=== PATIENT | male | born 1935 | race Caucasian/White ===

== ENCOUNTER 2024-01-25 23:17 | Inpatient (IN) | payer MEDICARE, OTHER ==
[2024-01-26] MEDS ORDERED: Dextrose 50% Abboject 50 ML SYRINGE SLOW IVP PRN (02:18)
[2024-01-26] MEDS ORDERED: Glucagon 1 MG/ML KIT IM PRN (02:18)
[2024-01-26] MEDS ORDERED: Dextrose 5% in Water 1,000 ML IV PRN (02:18)
[2024-01-26] MEDS: traMADol HCl 50 MG TAB PO PRN ×2 (02:59→09:08)
[2024-01-26 03:50] VITALS: BMI 26.7
[2024-01-26] MEDS: Albuterol 2.5 MG (3 mL) NEB NEB SCH (03:58)
[2024-01-26 04:52] LABS: #Basophils 0.03 10x3/uL (0.0-0.2); %Basophils 0.2 % (0.0-1.0); %Eosinophils 0.3 % (0.0-10.0); %Lymphocytes 3.7 % (21.0-51.0); %Monocytes 3.8 % (0.0-10.0); %Neutrophils 91.3 % (42.0-75.0); Hematocrit 39.9 % (42.0-52.0); Hemoglobin 12.9 g/dL (14.0-18.0); Mean Corpuscular HGB CONC 32.3 g/dL (32.0-36.0); Mean Corpuscular Hemoglobin 29.8 pg (27.0-31.0); Mean Corpuscular Volume 92.1 fL (78.0-98.0); Mean Platelet Volume 11.3 fL (7.4-10.4); Platelet Count 219 10x3/uL (130-400); RBC Distribution Width 14.3 % (11.5-14.5); Red Blood Cell (RBC) Count 4.33 mill/uL (4.70-6.10)
[2024-01-26 05:13] LABS: Anion Gap 14 mmol/L (10-20); BUN (Urea Nitrogen) 9 mg/dL (8.4-25.7); Calc. Creatinine Clearance 84 mL/min (70-130); Calcium 8.3 mg/dL (7.8-10.44); Carbon Dioxide 27 mmol/L (23-31); Chloride 105 mmol/L (98-107); Estimated GFR 88; Glucose 115 mg/dL (83-110); Potassium 3.6 mmol/L (3.5-5.1); Sodium 142 mmol/L (136-145)
[2024-01-26] MEDS: Morphine 2 MG/ML VIAL SLOW IVP PRN (06:20)
[2024-01-26] MEDS: Venlafaxine HCl XR 150 MG CAP PO SCH (09:05)
[2024-01-26] MEDS: Pantoprazole DR 40 MG TAB PO SCH (09:05)
[2024-01-26] MEDS: Docusate 100 MG CAP PO SCH (09:05)
[2024-01-26] MEDS: Metoprolol Tartrate 25 MG TAB PO SCH (09:05)
[2024-01-26] MEDS ORDERED: Iopamidol-370 76% 500 ML MDV (1 ML CHARGE) ONE (11:30)
[2024-01-26] MEDS: traMADol HCl 50 MG TAB PO SCH (12:46)
[2024-01-26] MEDS: Acetaminophen 325 MG TAB PO PRN (20:24)
[2024-01-26] MEDS: hydrALAZINE 20 MG/ML VIAL SLOW IVP SCH (23:02)
[2024-01-27] MEDS: hydrALAZINE 20 MG/ML VIAL SLOW IVP SCH (00:29)
[2024-01-27 01:48] LABS: Bacteria/HPF None Seen HPF (None Seen); Bilirubin Negative (Negative); Blood, Urine Negative (Negative); Clarity Clear (Clear); Glucose, Urine (Dipstick) Normal (Negative); Ketone, Urine Negative (Negative); Leukocyte Negative Leu/uL (Negative); Nitrite Negative (Negative); Protein, Urine (Dipstick) 30 mg/dL (Neg-Trace); RBC/HPF None Seen HPF (0-3); Specific Gravity, Urine 1.014 (1.002-1.036); Squamous Epithelial None Seen HPF (0-3); Urobilinogen Normal mg/dL (Less than 2); WBC/HPF 0-3 HPF (0-3)
[2024-01-27 04:26] LABS: #Basophils 0.05 10x3/uL (0.0-0.2); %Basophils 0.3 % (0.0-1.0); %Eosinophils 1.1 % (0.0-10.0); %Lymphocytes 3.3 % (21.0-51.0); %Monocytes 3.8 % (0.0-10.0); %Neutrophils 90.8 % (42.0-75.0); Hematocrit 42.7 % (42.0-52.0); Hemoglobin 13.8 g/dL (14.0-18.0); Mean Corpuscular HGB CONC 32.3 g/dL (32.0-36.0); Mean Corpuscular Hemoglobin 29.5 pg (27.0-31.0); Mean Corpuscular Volume 91.2 fL (78.0-98.0); Platelet Count 213 10x3/uL (130-400); RBC Distribution Width 14.5 % (11.5-14.5); Red Blood Cell (RBC) Count 4.68 mill/uL (4.70-6.10)
[2024-01-27 04:46] LABS: Anion Gap 13 mmol/L (10-20); BUN (Urea Nitrogen) 11 mg/dL (8.4-25.7); Calc. Creatinine Clearance 82 mL/min (70-130); Calcium 8.6 mg/dL (7.8-10.44); Carbon Dioxide 25 mmol/L (23-31); Chloride 102 mmol/L (98-107); Estimated GFR 88; Glucose 124 mg/dL (83-110); Potassium 3.9 mmol/L (3.5-5.1); Sodium 136 mmol/L (136-145)
[2024-01-27] MEDS: Ondansetron PF 4 MG/2 ML Vial IVP PRN (06:07)
[2024-01-27] MEDS ORDERED: Sodium Chloride 0.9% 1,000 ML IV SCH (10:15)
[2024-01-27] MEDS ORDERED: Ondansetron PF 4 MG/2 ML Vial ONE (11:28)
[2024-01-27] MEDS ORDERED: SUCCINYLCHOLINE/SOD CL,ISO/PF 200 MG/10 ML SYRINGE FS ONE (11:28)
[2024-01-27] MEDS ORDERED: Lidocaine 2% PF 5 ML VIAL ONE (11:28)
[2024-01-27] MEDS ORDERED: Rocuronium Bromide 10 MG/ML (10ML VIAL) ONE (11:28)
[2024-01-27] MEDS ORDERED: SUGAMMADEX SODIUM 200 MG/2 ML VIAL ONE (11:28)
[2024-01-27] MEDS ORDERED: PROPOFOL 20 ML ONE (11:28)
[2024-01-27] MEDS ORDERED: fentaNYL PF 100 MCG/2 ML SYRINGE ONE (11:28)
[2024-01-27] MEDS ORDERED: Albuterol HFA (OR) 200 PUFF INH ONE (11:28)
[2024-01-27] MEDS ORDERED: Dexmedetomidine 200 MCG/2 ML VIAL ONE (11:33)
[2024-01-27] MEDS ORDERED: Iopamidol-370 76% 500 ML MDV (1 ML CHARGE) ONE (12:19)
[2024-01-27] MEDS ORDERED: Promethazine HCl 25 MG/ML VIAL IM PRN (13:06)
[2024-01-27] MEDS ORDERED: Ondansetron HCl/PF 4 MG/2 ML Vial IVP PRN (13:06)
[2024-01-27] MEDS ORDERED: Ipratropium/Albuterol 3 ML NEB ONE (13:10)
[2024-01-27] MEDS: Sodium Chloride 0.9% 1,000 ML IV SCH (16:44)
[2024-01-27] MEDS ORDERED: Non-Formulary Item 1 EACH (Hydralazine Hcl [Hydralazine Hcl] 50 MG Tablet) PO SCH (21:00)
[2024-01-27] MEDS ORDERED: fentaNYL 50 mcg/mL 1 mL Vial SLOW IVP PRN (21:08)
[2024-01-27] MEDS: NOREPINEPHRINE 8 MG/250 ML-D5W 250 ML IVPB SCH (21:28)
[2024-01-27] MEDS ORDERED: Sodium Bicarb 50 MEQ/50 ML Abboject 8.4% SYRINGE ONE (21:29)
[2024-01-27] MEDS ORDERED: EPINEPHrine 1 MG/10 ML Abboject SYRINGE ONE (21:29)
[2024-01-27 21:57] LABS: Actual Bicarbonate (HCO3a) 19.5 mEq/L (22-28); Base Excess (BEa) -8.3 mEq/L (-2.0 to +3.0); CO2 Tension 51.6 mmHg (35.0-45.0); Calcium, Ionized (arterial) 0.99 mmol/L (1.12-1.30); Carboxyhemoglobin (COHb) 1.6 gm% (0.0-3.0); Hematocrit-ABG 26 % (42.0-52.0); Hemoglobin (Hb) 8.9 g/dL (14.0-18.0); O2 Tension (PaO2), arterial 275.4 mmHg (> 60.0); Potassium - ABG Lab 3.48 mmol/L (3.70-5.30)
[2024-01-27 21:58] LABS: Puncture Site Right Radial artery; pH, Arterial 7.196 (7.35-7.45)
[2024-01-27] MEDS: hydrALAZINE 25 MG TAB PO SCH (22:09)
[2024-01-27] MEDS: Lisinopril 20 MG TAB PO SCH (22:09)
[2024-01-27 22:24] LABS: Band 12 % (5-11); Burr Cells SLIGHT = 2-5 cells HPF (0-1); Elliptocytes SLIGHT = 2-5 cells HPF (0-1); Large Platelets 8.7 % (0-5); Lymphocytes 5 % (21-51); Macrocytosis SLIGHT = 6-15 cells HPF (0-5); Monocytes 3 % (0-10); Neutrophil 80 % (42-75); Platelet Adequacy Comment Platelets Normal; Poikilocytosis SLIGHT = 6-15 cells HPF (0-5); Polychromasia SLIGHT = 2-3 cells HPF (0-2); Schistocytes SLIGHT = 2-5 cells HPF (0-1)
[2024-01-27 22:25] LABS: ALT (SGPT) 35 U/L (8-55); AST (SGOT) 45 U/L (5-34); Albumin 2.2 g/dL (3.4-4.8); Alkaline Phosphatase 70 U/L (40-110); Anion Gap 28 mmol/L (10-20); BUN (Urea Nitrogen) 22 mg/dL (8.4-25.7); Bilirubin, Total 1.9 mg/dL (0.2-1.2); Calc. Creatinine Clearance 40 mL/min (70-130); Calcium 7.8 mg/dL (7.8-10.44); Carbon Dioxide 14 mmol/L (23-31); Chloride 105 mmol/L (98-107); Estimated GFR 45; Glucose 149 mg/dL (83-110); Hematocrit 30.9 % (42.0-52.0); Hemoglobin 9.2 g/dL (14.0-18.0); Magnesium 2.6 mg/dL (1.6-2.6); Mean Corpuscular HGB CONC 29.8 g/dL (32.0-36.0); Mean Corpuscular Hemoglobin 30.3 pg (27.0-31.0); Mean Corpuscular Volume 101.6 fL (78.0-98.0); Mean Platelet Volume 12.1 fL (7.4-10.4); Platelet Count 296 10x3/uL (130-400); Potassium 4.7 mmol/L (3.5-5.1); Protein, Total 4.2 g/dL (5.8-8.1); RBC Distribution Width 14.4 % (11.5-14.5); Red Blood Cell (RBC) Count 3.04 mill/uL (4.70-6.10); Sodium 142 mmol/L (136-145)
[2024-01-27 22:27] LABS: Troponin I 0.093 ng/mL (< 0.028)
[2024-01-27 22:29] LABS: Lactic Acid 15.51 mmol/L (0.5-2.2)
[2024-01-27] MEDS ORDERED: Ventilator Sedation Protocol 1 EACH FS SCH (22:44)
[2024-01-27] MEDS ORDERED: Electrolyte Replacement Protocol 1 EACH FS SCH (22:49)
[2024-01-27] MEDS ORDERED: Ipratropium/Albuterol 3 ML NEB NEB PRN (22:51)
[2024-01-27] MEDS: Vasopressin In 0.9 % NaCl 40 UNIT in Premix 1 BAG IV SCH (23:00)
[2024-01-27] MEDS ORDERED: Propofol BOLUS 1,000 MG/100 ML VIAL IV PRN (23:00)
[2024-01-27] MEDS ORDERED: DISCONTINUE PREVIOUS NARCOTIC PAIN MEDICATIONS AND BENZODIAZEPINES FS SCH (23:00)
[2024-01-27] MEDS ORDERED: Fentanyl BOLUS 250 ML IVPB PRN (23:00)
[2024-01-28 00:43] LABS: Lactic Acid 12.43 mmol/L (0.5-2.2)
[2024-01-28 00:53] LABS: Actual Bicarbonate (HCO3a) 17.8 mEq/L (22-28); Base Excess (BEa) -8.7 mEq/L (-2.0 to +3.0); CO2 Tension 40.5 mmHg (35.0-45.0); Carboxyhemoglobin (COHb) 0.9 gm% (0.0-3.0); Hematocrit-ABG 29 % (42.0-52.0); Hemoglobin (Hb) 9.7 g/dL (14.0-18.0); O2 Tension (PaO2), arterial 70.6 mmHg (> 60.0); Potassium - ABG Lab 3.85 mmol/L (3.70-5.30)
[2024-01-28 00:54] LABS: ALV-art Gradient 591.775 mmHg (0-20); Puncture Site Right Radial artery
[2024-01-28] MEDS: Propofol 1,000 MG/100 ML VIAL IV PRN (00:57)
[2024-01-28] MEDS: Sodium Bicarbonate 150 MEQ in Sterile Water 1,000 ML IVP SCH (00:57)
[2024-01-28] MEDS: Propofol 1,000 MG/100 ML VIAL IV ONE (01:02)
[2024-01-28] MEDS: NOREPINEPHRINE 8 MG/250 ML-D5W 250 ML ONE ×2 (01:02)
[2024-01-28] MEDS: Morphine 2 MG/ML VIAL SLOW IVP PRN (01:13)
[2024-01-28 01:44] VITALS: BP 143/72
[2024-01-28 04:27] LABS: Hematocrit 26.5 % (42.0-52.0); Hemoglobin 8.3 g/dL (14.0-18.0); Mean Corpuscular HGB CONC 31.3 g/dL (32.0-36.0); Mean Corpuscular Hemoglobin 30.2 pg (27.0-31.0); Mean Corpuscular Volume 96.4 fL (78.0-98.0); Mean Platelet Volume 12.4 fL (7.4-10.4); Platelet Count 255 10x3/uL (130-400); RBC Distribution Width 14.5 % (11.5-14.5); Red Blood Cell (RBC) Count 2.75 mill/uL (4.70-6.10)
[2024-01-28 04:35] LABS: Phosphorus 3.5 mg/dL (2.3-4.7)
[2024-01-28 04:40] LABS: ALT (SGPT) 404 U/L (8-55); AST (SGOT) 451 U/L (5-34); Albumin 2.1 g/dL (3.4-4.8); Alkaline Phosphatase 71 U/L (40-110); Anion Gap 20 mmol/L (10-20); BUN (Urea Nitrogen) 32 mg/dL (8.4-25.7); Bilirubin, Total 1.4 mg/dL (0.2-1.2); Calc. Creatinine Clearance 39 mL/min (70-130); Carbon Dioxide 21 mmol/L (23-31); Chloride 102 mmol/L (98-107); Estimated GFR 40; Globulin 1.9 g/dL (2.4-3.5); Glucose 179 mg/dL (83-110); Potassium 3.8 mmol/L (3.5-5.1); Sodium 139 mmol/L (136-145)
[2024-01-28 04:51] LABS: Lactic Acid 10.72 mmol/L (0.5-2.2)
[2024-01-28 05:15] LABS: Anisocytosis SLIGHT = 6-15 cells HPF (0-5); Band 23 % (5-11); Dohle Bodies SLIGHT; Metamyelocyte 1 % (0-0); Monocytes 4 % (0-10); Neutrophil 72 % (42-75); Platelet Adequacy Comment Platelets Normal; Polychromasia SLIGHT = 2-3 cells HPF (0-2); Schistocytes SLIGHT = 2-5 cells HPF (0-1); Toxic Granulation MODERATE
[2024-01-28] MEDS: Enoxaparin 40 MG (0.4 mL) SYRINGE SC SCH (09:17)
[2024-01-28] MEDS: Pantoprazole 40 MG VIAL IVP SCH (09:18)
[2024-01-28] MEDS ORDERED: Acetaminophen 650 MG/20.3 ML UDCUP PO PRN (11:13)
[2024-01-28] MEDS: Sodium Chloride 0.9% 1,000 ML IV SCH ×2 (11:30→18:57)
[2024-01-28] MEDS: traMADol HCl 50 MG TAB PO PRN (12:17)
[2024-01-28] MEDS: Fentanyl CADD 100 ML IV SCH (13:21)
[2024-01-28] MEDS: Lorazepam 2 MG/ML VIAL SLOW IVP PRN (14:19)
[2024-01-28] MEDS: Sodium Chloride 0.9% 500 ML IV SCH (14:40)
[2024-01-28] MEDS: Albumin 25% 25 GM (100 mL) BOT IVPB SCH (14:40)
[2024-01-28 15:35] VITALS: BMI 28.3
[2024-01-28] MEDS: Dexmedetomidine In 0.9 % NaCl 100 ML IVPB SCH (19:31)
[2024-01-28 20:27] VITALS: TEMP 96.7
== END 2024-01-28 22:47 | disposition expired | DRG 521 ==
LOC: SURG A 01-26 01:54 → CCU 01-27 21:38
PROVIDERS: ADMIT Surgery; ATTEND Surgery
PROC: 4A133R1 Monitoring of Arterial Saturation, Peripheral, Percutaneous Approach (ICD-10-PCS; 2024-01-27)
PROC: 3E043XZ Introduction of Vasopressor into Central Vein, Percutaneous Approach (ICD-10-PCS; 2024-01-27)
PROC: 5A1935Z Respiratory Ventilation, Less than 24 Consecutive Hours (ICD-10-PCS; 2024-01-27)
PROC: 0SRR01A Replacement of Right Hip Joint, Femoral Surface with Metal Synthetic Substitute, Uncemented, Open Approach (ICD-10-PCS; principal; 2024-01-28)
PROC: 06HY33Z Insertion of Infusion Device into Lower Vein, Percutaneous Approach (ICD-10-PCS; 2024-01-28)
PROC: 0BH17EZ Insertion of Endotracheal Airway into Trachea, Via Natural or Artificial Opening (ICD-10-PCS; 2024-01-28)
PROC: 3E033XZ Introduction of Vasopressor into Peripheral Vein, Percutaneous Approach (ICD-10-PCS; 2024-01-28)
PROC: 30233J1 Transfusion of Nonautologous Serum Albumin into Peripheral Vein, Percutaneous Approach (ICD-10-PCS; 2024-01-28)
PROC: 0T9B70Z Drainage of Bladder with Drainage Device, Via Natural or Artificial Opening (ICD-10-PCS; 2024-01-28)
DX: S72.001A Fracture of unspecified part of neck of right femur, initial encounter for closed fracture (principal); G93.41 Metabolic encephalopathy; J96.01 Acute respiratory failure with hypoxia; J96.02 Acute respiratory failure with hypercapnia; N17.9 Acute kidney failure, unspecified; E87.4 Mixed disorder of acid-base balance; M62.82 Rhabdomyolysis; I31.39 Other pericardial effusion (noninflammatory); I47.20 Ventricular tachycardia, unspecified; Z66 Do not resuscitate; J44.9 Chronic obstructive pulmonary disease, unspecified; I10 Essential (primary) hypertension; I72.6 Aneurysm of vertebral artery; I73.9 Peripheral vascular disease, unspecified; I45.10 Unspecified right bundle-branch block; I71.21 Aneurysm of the ascending aorta, without rupture; I71.60 Thoracoabdominal aortic aneurysm, without rupture, unspecified; R57.8 Other shock; Z88.2 Allergy status to sulfonamides; Z79.82 Long term (current) use of aspirin; Z79.899 Other long term (current) drug therapy; W01.0XXA Fall on same level from slipping, tripping and stumbling without subsequent striking against object, initial encounter; R74.01 Elevation of levels of liver transaminase levels; Y93.89 Activity, other specified; Y92.89 Other specified places as the place of occurrence of the external cause; Z79.02 Long term (current) use of antithrombotics/antiplatelets; Z90.49 Acquired absence of other specified parts of digestive tract; Z95.820 Peripheral vascular angioplasty status with implants and grafts
CPT/HCPCS: 36415; 36416; 36600; 70450; 70496; 70498; 71045; 71275; 72125; 72170; 74019; 74177; 80048; 80053; 81003; 81015; 82533; 82550; 82805; 83605; 83735; 83880; 84100; 84484; 85025; 85610; 85730; 87086; 93005; 93010; 93306; 94002; 94640; 96374; 96375; 96376; A4217; C1776; G0390; J0171; J0360; J1650; J1885; J2060; J2272; J2405; J2470; J2704; J3010; J7030; J7611; J7620; P9047; Q9967